=== PATIENT | female | born 1980 | race Caucasian/White ===

== ENCOUNTER 2017-09-13 09:54 | Emergency (ER) | payer SELFPAY ==
[~2017-09-13] VITALS: Ht 162.6 cm; Wt 54.5 kg
[2017-09-13 09:57] VITALS: BP 121/91
[2017-09-13] MEDS ORDERED: IBUPROFEN 200 MG TABLET ONE (10:29)
[2017-09-13] MEDS ORDERED: HYDROcodone/APAP 5/325 TABLET ONE (10:29)
[2017-09-13] MEDS ORDERED: HYDROcodone/APAP 5/325 TABLET PO ONE (10:30)
[2017-09-13] MEDS ORDERED: IBUPROFEN 200 MG TABLET PO ONE (10:30)
[2017-09-13] MEDS ORDERED: PLEASE ENTER HEIGHT AND WEIGHT MC SCH (11:00)
== END 2017-09-13 10:34 | disposition home or self-care (01) ==
LOC: ED 10:27
DX: H60.11 Cellulitis of right external ear (principal)
CPT/HCPCS: 99283

== ENCOUNTER 2017-09-13 22:50 | Emergency (ER) | payer SELFPAY ==
[~2017-09-13] VITALS: Ht 172.7 cm; Wt 53.4 kg
[2017-09-13 22:51] VITALS: BP 105/76
== END 2017-09-13 23:31 | disposition left against medical advice (07) ==
LOC: ED 23:18
DX: H60.311 Diffuse otitis externa, right ear (principal)
CPT/HCPCS: 99281